=== PATIENT | female | born 1960 | race Caucasian/White ===

== ENCOUNTER 2016-09-13 20:23 | Emergency (ER) | payer BC ==
[~2016-09-13] VITALS: Ht 162.6 cm; Wt 100.0 kg
[2016-09-13 21:12] LABS: BILIRUBIN,URINE Negative (Negative); CLARITY,URINE Cloudy; COLOR,URINE Red; GLUCOSE, URINE (UA) Negative (Negative); LEUKOCYTE ESTERASE ,URINE Negative (Negative); UROBILINOGEN,URINE 0.2 mg/dL (0.2-1.0)
[2016-09-13 21:15] LABS: RBC,URINE TNTC /HPF; URINE CENTRIFUGED VOLUME 12 mL
[2016-09-13 23:20] LABS: BASOPHILS % (AUTO) 1 % (0-2); EOSINOPHILS # (AUTO) 0.2 10^3uL; EOSINOPHILS % (AUTO) 3 % (0-4); LYMPHOCYTES # (AUTO) 2.5 X10^3; MEAN CORPUSCULAR HEMOGLOBIN 29.9 PG (26.0-34.0); MEAN CORPUSCULAR HGB CONC 34.5 g/dL (31.0-37.0); MEAN CORPUSCULAR VOLUME 87 FL (80-100); MEAN PLATELET VOLUME 8.8 FL (6.0-9.5); MONOCYTES # (AUTO) 0.8 X10^3; MONOCYTES % (AUTO) 10 % (3-11); NEUTROPHILS # (AUTO) 4.6 X10^3; NEUTROPHILS % (AUTO) 56 % (51-67); PLATELET COUNT 256 10^3uL (150-450); WHITE BLOOD COUNT 8.14 10^3uL (4.0-11.0)
[2016-09-13 23:33] LABS: ALBUMIN 4.4 g/dL (3.4-5.0); ALKALINE PHOSPHATASE 94 U/L (38-126); ANION GAP 14.7 MEQ/L (3-15); BUN/CREATININE RATIO 26 (10-20); CALCULATED IONIZED CALCIUM 4.1 mg/dL (3.8-4.6); CREATINE KINASE 65 U/L (30-135); TOTAL PROTEIN 7.6 g/dL (6.4-8.5)
[2016-09-14 00:22] LABS: AMPHETAMINE SCREEN, URINE Negative (Negative); CANNABINOID SCREEN, URINE Negative (Negative); METHAMPHETAMINE SCREEN URINE S NEGATIVE (NEGATIVE); OPIATE SCREEN URINE Negative (Negative); PROPOXYPHENE STAT NEGATIVE (NEGATIVE)
[2016-09-14 01:12] VITALS: BP 167/90
== END 2016-09-14 01:13 | disposition home or self-care (01) ==
LOC: ED 20:26
DX: R31.9 Hematuria, unspecified (principal); I10 Essential (primary) hypertension
CPT/HCPCS: 36415; 71010; 74176; 80053; 80307; 81003; 81015; 82550; 82553; 83880; 84443; 84484; 85025; 85610; 86140; 93005; 93010; 99284; 99285